=== PATIENT | female | born 1990 | race Caucasian/White ===

== ENCOUNTER 2022-10-18 23:34 | Emergency (ER) | payer OTHER ==
[~2022-10-18] VITALS: Ht 154.9 cm; Wt 56.9 kg
[2022-10-18 23:41] VITALS: BP 120/81
== END 2022-10-19 02:27 | disposition left against medical advice (07) ==
LOC: ER 23:34
DX: Z53.21 Procedure and treatment not carried out due to patient leaving prior to being seen by health care provider (principal)